=== PATIENT | female | born 1965 | race African-American/Black ===

== ENCOUNTER 2025-04-15 12:17 | Emergency (ER) | payer MEDICAID ==
[~2025-04-15] VITALS: Ht 170.2 cm; Wt 110.0 kg
[~2025-04-15 12:17] MED LIST: ASPI81CH43 GT; LIS5T GT; TRIA37.561 PO
--- NOTE | 2025-04-15 13:00 | ED.PDOC ---
HPI Allergic reaction HPI Comments 59 year old female with PMHx HTN presents to the ED with a chief complaint of allergic reaction onset today about 20 minutes prior to ED arrival. Patient states she took Diclofenac medication, shortly after began experiencing generalized itchiness, dry mouth, eye swelling, mouth swelling, difficulty swallowing. Immediately after onset of symptoms, patient came to ED. Denies chest pain, dizziness, fever, chills, nausea, vomiting, diarrhea, headache. No other symptoms or modifying factors present at this time. Chief Complaint: Rash Time Seen by MD: 12:45 Primary Care Provider: JUNIORK Reviewed Notes: Nurses Notes, Medications, Allergies Allergies: Coded Allergies: NO KNOWN ALLERGIES (Unverified , 04/05/13) Home Meds Active Scripts Diphenhydramine Hcl (Benadryl Allergy) 25 Mg Cap, 25 MG PO BID for 7 Days, #14 C AP Prov:HAI REYES MD 04/15/25 Methylprednisolone (Medrol Dosepak) 4 Mg Aashish, 4 MG PO UD, #21 TAB UAD Prov:HAI REYES MD 04/15/25 Reported Medications Aspirin (Asa) 81 Mg Ch, 81 MG GT 04/05/13 Lisinopril (ZESTRIL TABLET) 5 Mg Tb, 5 MG GT 04/05/13 Hydrochlorothiazide W/Triamter (Dyazide) 1 Cap Cap, 1 CAP PO, CAP 04/05/13 Information Source: Patient Mode of Arrival: Wheelchair Severity: Moderate Difficulty swallowing: Moderate Timing: Minutes Duration: Since onset Prehospital treatment: None Exposed to: Medication Developed: Difficult Swallowing History of: None Modyifying Factors: None Past Medical History PAST MEDICAL HISTORY: Anxiety, Depression, HTN Past Medical History (Other): chronic back pain Surgical History: [employer] History: No Pertinent [employer] History Family History Family History: Family hx of HTN Social History Smoker: Cigarettes Alcohol: Occasionally Drugs: Denies Drug Use Lives In: Home Constitutional: denies: chills, diaphoresis, fatigue, fever, malaise, sweats, weakness, others EENTM: reports: mouth swelling, others (dry mouth, eye swelling); denies: blurred vision, double vision, ear bleeding, ear discharge, ear drainage, ear pain, ear ringing, eye pain, eye redness, hearing loss, mouth pain, nasal discharge, nose bleeding, nose congestion, nose pain, photophobia, tearing, throat pain, throat swelling, voice changes Respiratory: denies: cough, hemoptysis, orthopnea, SOB at rest, shortness of breath, SOB with excertion, stridor, wheezing, others Cardiovascular: denies: chest pain, dizzy spells, diaphoresis, Dyspnea on exertion, edema, irregular heart beat, left arm pain, lightheadedness, palpitations, PND, syncope, others Gastrointestinal: denies: abdomen distended, abdominal pain, blood streaked bowels, constipated, diarrhea, dysphagia, difficulty swallowing, hematemesis, melena, nausea, poor appetite, poor fluid intake, rectal bleeding, rectal pain, vomiting, others Genitourinary: denies: abnormal vagina bleeding, burning, dyspareunia, dysuria, flank pain, frequency, hematuria, incontinence, pain, , vagina discharge, urgency, others Neurological: denies: dizziness, fainting, headache, left sided numbness, left sided weakness, numbness, paresthesia, pre-existing deficit, right sided numbness, right sided weakness, seizure, speech problems, tingling, tremors, weakness, others Musculoskeletal: denies: back pain, gout, joint pain, joint swelling, muscle pain, muscle stiffness, neck pain, others Integumetry: denies: bruises, change in color, change in hair/nails, dryness, laceration, lesions, lumps, rash, wounds, others Allergic/Immunocompromised: denies: Difficulty Healing, Frequent Infections, Hives, Itching, others Hematologic/Lymphatic: denies: anemia, blood clots, easy bleeding, easy bruising, swollen glands, others Endocrine: denies: excessive hunger, excessive sweating, excessive thirst, excessive urination, flushing, intolerance to cold, intolerance to heat, unexplained weight gain, unexplained weight loss, others Psychiatric: denies: anxiety, bipolar disorder, depression, hopeless, panic disorder, schizophrenia, sleepless, suicidal, others All Other Systems: Reviewed and Negative Physical Exam General Appearance: Mild Distress HEENT: Normal ENT Inspection, Pharynx Normal, TMs Normal Neck: Full Range of Motion, Non-Tender, Normal, Normal Inspection Respiratory: Chest Non-Tender, Lungs Clear, No Accessory Muscle Use, No Respiratory Distress, Normal Breath Sounds Cardiovascular: No Edema, No JVD, No Murmur, No Gallop, Normal Peripheral Pulses, Regular Rate/Rhythm Breast Exam: Deferred Gastrointestinal: No Organomegaly, Non Tender, No Pulsatile Mass, Normal Bowel Sounds, Soft Genitalia: Deferred Pelvic: Deferred Rectal: Deferred Extremities: No calf tenderness, Normal capillary refill, Normal inspection, Normal range of motion, Non-tender, No pedal edema Musculoskeletal : Apperance: Normal Neurologic: Alert, windows phone developer II-XII nml as Tested, No Motor Deficits, Normal Affect, Normal Mood, No Sensory Deficits Cerebellar Function: Normal Reflexes: Normal Skin: Dry, Normal Color, Warm Lymphatic: No Adenopathy Was a procedure done? Was a procedure done?: No EKG EKG : Pulse Rate (adult): 69 [place]: Normal Cardiac Rhythm: NSR Differential diagnosis (all) Differential Diagnosis: Anaphylaxis, Angioedema, Shock, Urticaria X-Ray, Labs, Meds, VS Vital Signs Date Time Temp Pulse Resp B/P (MAP) Pulse Ox O2 Delivery O2 Flow Rate FiO2 04/15/25 13:00 69 04/15/25 12:27 69 04/15/25 12:19 97.0 100 18 103/74 97 97.0 The patient is being discharged at this time The patient was given Benadryl 25 mg IV push The patient was also given Solu-Medrol 125 mg IV push At this time the patient is feeling better The patient will be discharged and will follow up with the primary care doctor The patient is saturating at 98% on room air Time of 1ST Reevaluation: 13:15 Reevaluation 1ST: Unchanged Patient Education/Counseling: Diagnosis, Treatment, Prognosis, Need For Follow Up Family Education/Counseling: No Family Present SEPSIS Sepsis Screen Date sepsis recognized/suspect: Apr 15, 2025 Time Sepsis recognized/suspect: 1222 Recent Procedure: No On Antibiotic Therapy: No Respiratory Rate >20: No Heart Rate >90: No Temp<36 C (96.8 F) or >38.3 C: No SBP <90 or MAP <65 mmHG: No New Acute Mental Status Change: No Is the patient on CPAP, BIPAP,: No Physician Orders Heplock Iv (04/15/25 12:41) Electrocardigram (04/15/25 13:23) Vital Signs Date Time Temp Pulse Resp B/P (MAP) Pulse Ox O2 Delivery O2 Flow Rate FiO2 04/15/25 13:00 69 12/10/25 12:27 69 04/15/25 12:19 97.0 100 18 103/74 97 97.0 Departure 1 Departure Time of Disposition: 15:11 Impression: Primary Impression: Acute allergic reaction Qualified Codes: T78.40XA - Allergy, unspecified, initial encounter Disposition: HOME / SELF CARE / HOMELESS Condition: Fair e-Prescriptions Diphenhydramine Hcl (Benadryl Allergy) 25 Mg Cap 25 MG PO BID for 7 Days, #14 CAP Prov: HAI REYES MD 04/15/25 Methylprednisolone (Medrol Dosepak) 4 Mg Aashish 4 MG PO UD, #21 TAB UAD Prov: HAI REYES MD 04/15/25 Discharged With: Self Critical Care Note Critical Care Time?: No Stability Stability form required: No Heart Score Heart Score: Heart Score Response (Comments) Value History N/A 0 EKG N/A 0 Age N/A 0 Risk Factors N/A 0 Troponin N/A 0 Total 0 I personally scribed for HAI REYES MD ([email or web address]) on 04/15/25 at 13:00. Electronically submitted by Sofia Wing ([email or web address]). I personally scribed for HAI REYES MD ([email or web address]) on 04/15/25 at 13:01. Electronically submitted by Sofia Wing ([email or web address]). HAI REYES MD Apr 15, 2025 13:00
[2025-04-15] MEDS ORDERED: METH4PAK PO (14:03)
[2025-04-15] MEDS ORDERED: DIPH25CA66 PO (14:04)
[2025-04-15] MEDS: diphenhydrAMINE HCL 50 MG/1 ML VL IV ONE (16:00)
[2025-04-15] MEDS: methylPREDNISolone SOD SUCC 125 MG/2 ML VL IV ONE (16:00)
[2025-04-15] MEDS: SODIUM CHLORIDE 0.9% 500 ML IV ONE (16:01)
--- NOTE | 2025-04-15 16:47 | ECG ---
[facility] Test Date: 2025-04-15 Test Time: 12:27:50 Pat Name: SAM LOPEZ Department: ED Room: Gender: F Business Process Expert: NEEL : [id number] Requested By: HAI REYES Order Number: [id number] Reading MD: Armand Kinney Measurements Intervals [place] Rate: 69 P: 58 GA: 230 QRS: -50 QRSD: 72 T: 5 QT: 397 QTc: 426 Interpretive Statements Sinus rhythm Prolonged GA interval Left ventricular hypertrophy Inferior infarct, age indeterminate Probable anterior infarct, age indeterminate Lateral leads are also involved Artifact in lead(s) II,III,aVR,aVL,aVF,V1,V3,V4,V6 Electronically Signed On 04-16-2025 20:10:12 PST by Armand Kinney Please click the below link to view image of tracing.
[2025-04-15 16:48] VITALS: BP 138/67; PULSE 72; RESP 18; TEMP 98; O2SAT 98
== END 2025-04-15 17:17 | disposition home or self-care (01) ==
LOC: ER 12:17
DX: T78.49XA Other allergy, initial encounter (principal); I10 Essential (primary) hypertension; F41.9 Anxiety disorder, unspecified; F32.A Depression, unspecified; F17.210 Nicotine dependence, cigarettes, uncomplicated; X58.XXXA Exposure to other specified factors, initial encounter
CPT/HCPCS: 93005; 96361; 96374; 96375; 99284; J1200; J2919; J7030